=== PATIENT | male | born 1995 | race Caucasian/White ===

== ENCOUNTER 2018-12-29 20:28 | Emergency (ER) | payer OTHER ==
[~2018-12-29] VITALS: Ht 172.7 cm; Wt 104.3 kg
[~2018-12-29 20:28] MED LIST: IBUPROFEN 600600 M1 PO
[2018-12-29 20:32] VITALS: BP 146/80
[2018-12-29] MEDS ORDERED: ACETAMINOPHEN500 M1 PO (20:36)
[2018-12-29] MEDS ORDERED: NORCO 5-325 TA1 EAC1 PO (20:54)
[2018-12-29] MEDS ORDERED: AMOXICILLIN 50500 MG PO (20:54)
[2018-12-29] MEDS ORDERED: IBUPROFEN 800800 MG PO (20:55)
== END 2018-12-29 21:00 | disposition home or self-care (01) ==
LOC: M.ERS 20:28
DX: K04.7 Periapical abscess without sinus (principal)